=== PATIENT | male | born 2005 | race Caucasian/White ===

== ENCOUNTER 2023-07-21 16:45 | Emergency (ER) | payer BC ==
[2023-07-21] MEDS ORDERED: Fluorescein 1 MG Ophth Strip EYELF ONE (17:11)
[2023-07-21] MEDS ORDERED: prednisoLONE Acetate 1% Ophth Susp 5 ML Bottle EYELF SCH ×2 (17:41→21:00)
== END 2023-07-21 17:50 | disposition home or self-care (01) ==
LOC: JD.ED 16:45
DX: S05.02XA Injury of conjunctiva and corneal abrasion without foreign body, left eye, initial encounter (principal); X58.XXXA Exposure to other specified factors, initial encounter
CPT/HCPCS: 99283; A9270